=== PATIENT | female | born 1995 | race Caucasian/White ===

== ENCOUNTER 2017-11-29 12:07 | Day surgery (SDC) | payer BC, OTHER ==
[~2017-11-29 12:07] MED LIST: Buffered Lidocaine 0.9% SYRIN* 5 ML/SYR SYRINGE INTRADERM ONE; Dexamethasone IV* 4 MG/ML 1 ML (4 MG) ONE; Famotidine IV* 10 MG/ML 2 ML (20 mg) IV ONE; KETAMINE HCL* 50 MG/ML 10 ML VIAL ONE; Ketorolac INJ* 30 MG/ML 1 ML VIAL ONE; Lidocaine 2% PF * 5 ML VIAL ONE; Midazolam* 1 MG/ML 10 ML VIAL (10 MG) ONE; Ondansetron INJ* 2 MG/ML VIAL ONE; Propofol* 10 MG/ML 20 ML BTL IV PUSH ONE; fentaNYL* 50 MCG/ML 2 ML VIAL (100 MCG VIAL) ONE
[2017-11-29] MEDS ORDERED: ceFAZolin 2 GM PREMIX (*) 2 GM/50 ML BAG IVPB ONE (12:10)
[2017-11-29] MEDS ORDERED: Buffered Lidocaine 0.9% SYRIN* 5 ML/SYR SYRINGE ONE (12:10)
[2017-11-29] MEDS ORDERED: Famotidine IV* 10 MG/ML 2 ML (20 mg) ONE (12:10)
[2017-11-29] MEDS ORDERED: Lidocaine 1% INJ* 10 MG/ML 30 ML SDV ONE (13:04)
[2017-11-29] MEDS ORDERED: Bacitracin OINTMENT* 0.5% 0.5 oz TUBE ONE (14:09)
[2017-11-29] MEDS ORDERED: oxyCODONE/Acetamin 5/325 MG* TAB PO PRN (14:10)
[2017-11-29] MEDS ORDERED: fentaNYL* 50 MCG/ML 2 ML VIAL (100 MCG VIAL) IV PRN (14:20)
[2017-11-29] MEDS ORDERED: Ondansetron INJ* 2 MG/ML VIAL IV PRN (14:20)
[2017-11-29] MEDS ORDERED: Naloxone* 0.4 MG/ML 1 ML VIAL IV PRN (14:20)
[2017-11-29 15:35] VITALS: BP 100/63
--- NOTE | 2017-12-14 03:26 | OP ---
CC: Davon Aguilar MD * DATE OF OPERATION: 11/29/17 - SDS DATE OF : 95 SURGEON: Dell Glaser MD ELEMENTARY [employer]ASSROOM TEACHER: JACINTA Wells ANESTHESIA: Local MAC anesthesia. PRE-OP DIAGNOSIS: Left foot foreign body. POST-OP DIAGNOSIS: Left foot foreign body. OPERATIVE PROCEDURE: Removal of left foot foreign body. ESTIMATED BLOOD LOSS: Minimal blood loss. FLUIDS: Minimal crystalloid fluid given. SPECIMEN: Foreign body. DESCRIPTION OF PROCEDURE: The patient was identified in the preoperative area, foot was marked. He was brought to the operating room, placed on the operating room table in a prone position. Gentle sedation was given. The patient's foot was prepped sterilely and draped and a time-out was performed. Previously identified place where we were going to make our incision was then identified. We injected lidocaine at this site. A small incision was made. We did utilize ultrasound to also confirm the foreign body as well as its location as well as its depth to the tissues. We incised through this depth and thoroughly looked within the region. We found a foreign body, which was then removed. It appeared to be approximately 1.5 cm metal needle appearing item. This was packed off as specimen. We irrigated the wound. There was no purulence. There was no inflammatory tissue at all. We then reapproximated the skin with 3-0 nylon suture and placed dressing at the site. The patient tolerated the procedure well, was woken up in the OR, and transferred to PACU in stable condition. [id number] #: [id number] MTDD
== END 2017-11-29 15:35 | disposition home or self-care (01) ==
LOC: OR 12:07
PROVIDERS: ATTEND Surgery
DX: S91.342A Puncture wound with foreign body, left foot, initial encounter (principal); F17.210 Nicotine dependence, cigarettes, uncomplicated; E03.9 Hypothyroidism, unspecified; X58.XXXA Exposure to other specified factors, initial encounter; Y92.9 Unspecified place or not applicable
CPT/HCPCS: 36415; 81025; 84702; 88300; A9270-GY; J0690; J1100; J1885; J2250; J2405; J2704; J3010

== ENCOUNTER 2018-06-21 23:14 | Emergency (ER) | payer BC ==
[2018-06-22] MEDS ORDERED: Acetaminophen TAB* 325 MG PO ONE (00:57)
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
[2018-06-22 02:40] VITALS: BP 128/67
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
--- NOTE | 2018-06-22 07:48 | RAD ---
INDICATION: Left ring finger injury COMPARISON: None TECHNIQUE: AP, lateral, and oblique views were obtained. FINDINGS: There is no acute fracture. There is soft tissue injury about the nailbed with soft tissue swelling. IMPRESSION: NO ACUTE FRACTURE. R0
== END 2018-06-22 02:40 | disposition home or self-care (01) ==
LOC: ED 23:14
DX: S09.90XA Unspecified injury of head, initial encounter (principal); S02.2XXA Fracture of nasal bones, initial encounter for closed fracture; T79.7XXA Traumatic subcutaneous emphysema, initial encounter; S69.92XA Unspecified injury of left wrist, hand and finger(s), initial encounter; W22.8XXA Striking against or struck by other objects, initial encounter; Y93.15 Activity, underwater diving and snorkeling; Y92.89 Other specified places as the place of occurrence of the external cause; F17.210 Nicotine dependence, cigarettes, uncomplicated
CPT/HCPCS: 70450; 70486; 73140; 99283; A9270-GY